=== PATIENT | male | born 1975 | race American Indian/Alaskan Native ===

== ENCOUNTER 2020-07-16 11:50 | Emergency (ER) | payer BC, OTHER ==
[2020-07-16] MEDS ORDERED: Sodium Chloride 0.9% 10 ML Syringe FLUSH PRN (12:24)
--- NOTE | 2020-07-16 12:29 | EDM.PDOC ---
ED HPI GENERAL MEDICAL PROBLEM - General Stated Complaint: ER VISIT Time Seen by Provider: 07/16/20 11:52 Source of Information: Reports: Patient History Limitations: Reports: No Limitations - History of Present Illness INITIAL COMMENTS - FREE TEXT/NARRATIVE: Patient comes into the emergency department complaint of chest pain.Patient was over at the [facility] and was escorted over here immediately after he presented with chest pain and shortness of breath. Patient states that the chest pain started approximately 5 hours ago. Patient states that he was getting ready for work this morning and he started having sharp shooting squeezing sensation pains bilaterally off of both shoulders down both of his arms. He states that his chest became tight and he also became short of breath and diaphoretic. He states that it has been slowly improving throughout the morning however he states that it is still minimally present.Patient currently denies any shortness of breath, dizziness, lightheadedness, abdominal pain, nausea, or diaphoresis. Patient does have a significant history of cardiovascular disease. Patient has had an open heart surgery approximately 6 years ago as well as significant family coronary artery disease. Onset: Sudden Duration: Improving Location: Reports: Chest Severity: Moderate Improves with: Reports: Other Worsens with: Reports: Movement Associated Symptoms: Reports: Chest Pain, Diaphoresis, Nausea/Vomiting, Shortness of Breath - Related Data Allergies Allergy/AdvReac Type Severity Reaction Status Date / Time cefepime Allergy Liver Verified 08/01/19 15:35 Problems Home Meds: Home Meds Insulin Glarg,Human.Rec.Analog [LantUS Solostar] 32 units INJECT ASDIRECTED 10/21/15 [History] Insulin Aspart [NovoLOG] 12 units SQ ASDIRECTED 06/04/16 [History] Allopurinol [Zyloprim] 300 mg PO DAILY 10/13/16 [History] Cholecalciferol (Vitamin D3) [Vitamin D] 1,000 units PO DAILY 10/13/16 [History] Aspirin 81 mg PO DAILY 03/30/17 [History] Nitroglycerin 0.4 mg SL ASDIRECTED PRN 03/30/17 [History] Albuterol Sulfate [Proair Respiclick] 2 puff IH Q4HR PRN 05/14/17 [History] Ferrous Fumarate/Vitamin C [Vitron-C] 1 tab PO DAILY 05/14/17 [History] atorvaSTATin [Lipitor] 40 mg PO BEDTIME 05/14/17 [History] Isosorbide Mononitrate [Imdur] 15 mg PO BID 05/16/17 [History] Furosemide [Lasix] 80 mg PO DAILY 10/30/17 [History] Montelukast [Singulair] 10 mg PO BEDTIME 10/30/17 [History] Multivitamin [Multivitamins] 1 tab PO DAILY 10/30/17 [History] carvediloL [Carvedilol] 18.75 mg PO BID 10/30/17 [History] Losartan [Cozaar] 25 mg PO BID 12/17/17 [History] Calcium Carbonate/Vitamin D3 [[place] 500-Vit D3 200 Tb] 1 tab PO DAILY 01/18/18 [History] Ranolazine [Ranolazine ER] 500 mg PO BID 08/01/19 [History] Ticagrelor [Brilinta] 90 mg PO BID 08/01/19 [History] Torsemide 40 mg PO DAILY 08/01/19 [History] Valsartan 80 mg PO BID 08/01/19 [History] metFORMIN HCl [Metformin HCl ER] 500 mg PO BID 08/01/19 [History] metOLazone [Metolazone] 2.5 mg PO DAILY 08/01/19 [History] Past Medical History HEENT History: Reports: None, Impaired Vision Other HEENT History: wears glasses Cardiovascular History: Reports: Bypass, CAD, Cardiomyopathy, High Cholesterol, Hypertension, SOB on Exertion, Other (See Below) Other Cardiovascular History: hypertrophic cardiomyopathy Respiratory History: Reports: Asthma, SOB Other Respiratory History: c-pap with o2. Gastrointestinal History: Reports: GERD, GI Bleed Genitourinary History: Reports: Chronic Renal Insuffiency, Renal Calculus, Other (See Below) (Chronic microscopic hematuria) Other Genitourinary History: "stage 3 kidney disease" Musculoskeletal History: Reports: Amputation, Arthritis, Gout, Osteoarthritis Other Musculoskeletal History: collasped arch in Rt. foot. Wears a boot. Neurological History: Reports: Neuropathy, Peripheral Psychiatric History: Reports: None Endocrine/Metabolic History: Reports: Diabetes, Type II Hematologic History: Reports: None Immunologic History: Reports: None Oncologic (Cancer) History: Reports: None Dermatologic History: Reports: None - Infectious Disease History Infectious Disease History: Reports: Chicken Pox, MRSA - Past Surgical History Head Surgeries/Procedures: Reports: None Cardiovascular Surgical History: Reports: Coronary Artery Bypass, Other (See Below) Other Cardiovascular Surgeries/Procedures: CABG mar 2017 GI Surgical History: Reports: Cholecystectomy, EGD, Other (See Below) Other GI Surgeries/Procedures: cyst on liver Musculoskeletal Surgical History: Reports: Amputation Social & Family History - Family History Family Medical History: No Pertinent Family History - Caffeine Use Caffeine Use: Reports: None - Living Situation & Occupation Living situation: Reports: with Family ED ROS GENERAL - Review of Systems Review Of Systems: Comprehensive ROS is negative, except as noted in HPI. Constitutional: Reports: No Symptoms HEENT: Reports: No Symptoms Respiratory: Reports: No Symptoms Cardiovascular: Reports: Chest Pain, Dyspnea on Exertion Endocrine: Reports: No Symptoms GI/Abdominal: Reports: No Symptoms : Reports: No Symptoms Musculoskeletal: Reports: No Symptoms Skin: Reports: No Symptoms Neurological: Reports: No Symptoms Psychiatric: Reports: No Symptoms Hematologic/Lymphatic: Reports: No Symptoms Immunologic: Reports: No Symptoms ED EXAM, GENERAL - Physical Exam Exam: See Below Exam Limited By: No Limitations General Appearance: Alert, WD/WN, No Apparent Distress Eye Exam: Bilateral Eye: EOMI, PERRL Head: Atraumatic, Normocephalic Neck: Normal Inspection, Supple, Non-Tender, Full Range of Motion Respiratory/Chest: No Respiratory Distress, Lungs Clear, Normal Breath Sounds, No Accessory Muscle Use, Chest Non-Tender Cardiovascular: Normal Peripheral Pulses, Regular Rate, Rhythm, No Edema, No JVD, No Murmur, No Rub GI/Abdominal: Normal Bowel Sounds, Soft, Non-Tender, No Abnormal Bruit Back Exam: Normal Inspection, Full Range of Motion Extremities: Normal Inspection, Normal Range of Motion, Non-Tender. No: Other (Prosthetic on right lower extremity) Neurological: Alert, Oriented, CN II-XII Intact, Normal Cognition Skin Exam: Warm, Dry, Intact #1 Interpretation Rhythm: NSR [place]: Normal QRS: Normal ST-T: Normal QT: Normal UT/PQ Interval: prolonged Comparison: NA - No Prior EKG Course - Orders/Labs/Meds Orders: Active Orders 24 hr Category Date Time Status EKG Documentation Completion [RC] STAT Care 07/16/20 12:25 Ordered CBC WITH AUTO DIFF [HEME] Stat Lab 07/16/20 12:24 Ordered COMPREHENSIVE METABOLIC PN,CMP [CHEM] Stat Lab 07/16/20 12:24 Ordered CREATINE KINASE,CK [CHEM] Stat Lab 07/16/20 12:24 Ordered PRO B-TYPE NATRIUR PEPT,BNPPRO [CHEM] Stat Lab 07/16/20 12:25 Ordered TROPONIN I HIGH SENSITIVITY [CHEM] Stat Lab 07/16/20 12:25 Ordered Sodium Chloride 0.9% [Saline Flush] Med 07/16/20 12:24 Ordered 10 ml FLUSH ASDIRECTED PRN Peripheral IV Insertion Adult [OM.PC] Stat Oth 07/16/20 12:24 Ordered Medication Orders Sodium Chloride (Sodium Chloride 0.9% 10 Ml Syringe) 10 ml FLUSH ASDIRECTED PRN PRN Reason: Keep Vein Open Meds: Medications Generic Name Dose Route Start Last Admin Trade Name Freq PRN Reason Stop Dose Admin Sodium Chloride 10 ml 07/16/20 12:24 Sodium Chloride 0.9% 10 Ml Syringe FLUSH ASDIRECTED PRN Keep Vein Open - Re-Assessments/Exams Free Text/Narrative Re-Assessment/Exam: 07/16/20 13:01 pt resting well without any pain. Would like to be discharged. VSS Departure - Departure Time of Disposition: 14:02 Disposition: Home, Self-Care 01 Condition: Good Clinical Impression: Nonspecific chest pain, Costochondral pain - Discharge Information *PRESCRIPTION DRUG MONITORING PROGRAM REVIEWED*: Not Applicable *COPY OF PRESCRIPTION DRUG MONITORING REPORT IN PATIENT KATHYA: Not Applicable Instructions: Nonspecific Chest Pain, Adult, [id number] Additional Instructions: 1. rest 2. increase your water intake 3. Continue all at home medications 4. Activity and diet as tolerated 5. Can take over the counter Tylenol for any pain or discomfort 6. Follow up with PCP if symptoms continue, return, or progress 7. Call with any questions or concerns 8. It was advised to be admitted and observed for the cardiac labs over the next 12 hours however, you declined and stated verbally your understanding of the risk. Please return or call 911 if symptoms return or progress immediately. - My Orders Last 24 Hours: My Active Orders 07/16/20 12:24 CBC WITH AUTO DIFF [HEME] Stat COMPREHENSIVE METABOLIC PN,CMP [CHEM] Stat CREATINE KINASE,CK [CHEM] Stat Sodium Chloride 0.9% [Saline Flush] 10 ml FLUSH ASDIRECTED PRN Peripheral IV Insertion Adult [OM.PC] Stat 07/16/20 12:25 EKG Documentation Completion [RC] STAT PRO B-TYPE NATRIUR PEPT,BNPPRO [CHEM] Stat TROPONIN I HIGH SENSITIVITY [CHEM] Stat - Assessment/Plan Last 24 Hours: My Active Orders 07/16/20 12:24 CBC WITH AUTO DIFF [HEME] Stat COMPREHENSIVE METABOLIC PN,CMP [CHEM] Stat CREATINE KINASE,CK [CHEM] Stat Sodium Chloride 0.9% [Saline Flush] 10 ml FLUSH ASDIRECTED PRN Peripheral IV Insertion Adult [OM.PC] Stat 07/16/20 12:25 EKG Documentation Completion [RC] STAT PRO B-TYPE NATRIUR PEPT,BNPPRO [CHEM] Stat TROPONIN I HIGH SENSITIVITY [CHEM] Stat Assessment:: 1. chest pain Plan: 1. Labs completed in the ER. Results reviewed with the patient 2. IV initiated in the emergency department 3. IV fluids provided 4. Chest xray completed in ER. Results reviewed with the patient 5. ASA 324mg chewable was given to the patient 6. EKG was completed in ER. Results reviewed with the patient 7. Patient and nursing staff was updated regarding the plan of care 8. Education provided the patient regarding activity, diet, rest, [id number] medication modalities, and follow-up care was provided 9. Patient and family are agreeable to the above plan of care 10. All questions and concerns were addressed with the patient and family prior to discharge 11. Discussed with the patient and at great length regarding admitting as observation and repeating cardiac enzymes and monitoring CK level. Patient is adamant that he would like to go home at the present time. Patient states that they will take on the full responsibility and the risks of sudden cardiac , stroke, myocardial infarction, or irreversible heart damage. Patient and will contact 911 or return to the emergency department immediately if any of the symptoms do return.
[2020-07-16] MEDS ORDERED: Aspirin 81 MG Tab.Chew PO ONE (12:31)
[2020-07-16 12:55] LABS: ANION GAP 13.1 mmol/L (5-15); CHLORIDE,CL 105 mmol/L (98-107); SODIUM,NA 140 mmol/L (136-145)
--- NOTE | 2020-07-16 13:18 | CR ---
[id number] RAD/RAD Chest PA or AP 1V EXAM: RAD Chest PA or AP 1V INDICATION: CHEST PAIN. COMPARISON: None. DISCUSSION/IMPRESSION: Median sternotomy wires. Surgical clips project over the mediastinum. Heart is normal in size. Lungs are clear. No pleural effusion or pneumothorax. Aamir Mercedes MD 07/16/20 [id number] Thank you for allowing us to participate in the care of your patient.
[2020-07-16 20:04] VITALS: BP 151/81; PULSE 67
== END 2020-07-16 14:07 | disposition home or self-care (01) ==
LOC: VM.ED 11:50
DX: M94.0 Chondrocostal junction syndrome [Tietze] (principal); I25.10 Atherosclerotic heart disease of native coronary artery without angina pectoris; E78.00 Pure hypercholesterolemia, unspecified; I12.9 Hypertensive chronic kidney disease with stage 1 through stage 4 chronic kidney disease, or unspecified chronic kidney disease; E11.40 Type 2 diabetes mellitus with diabetic neuropathy, unspecified; E11.22 Type 2 diabetes mellitus with diabetic chronic kidney disease; N18.30 Chronic kidney disease, stage 3 unspecified; Z95.1 Presence of aortocoronary bypass graft; Z79.82 Long term (current) use of aspirin; Z79.899 Other long term (current) drug therapy; Z88.1 Allergy status to other antibiotic agents
CPT/HCPCS: 71045; 80053; 82550; 83880; 84484; 85025; 93005; 93010; 99284; 99285-25; A9270-GY

== ENCOUNTER 2020-07-19 15:41 | Emergency (ER) | payer OTHER ==
--- NOTE | 2020-07-19 15:53 | EDM.PDOC ---
ED HPI GENERAL MEDICAL PROBLEM - General Stated Complaint: CHEST PAIN Time Seen by Provider: 07/19/20 15:52 Source of Information: Reports: Patient, Family, RN, RN Notes Reviewed History Limitations: Reports: No Limitations - History of Present Illness INITIAL COMMENTS - FREE TEXT/NARRATIVE: Patient is a 44-year-old male who presents to ER with his complaining of chest pain/pressure. Patient states he was also here Sunday, states symptoms that day felt as though he had a head rash with numbness in the arms. Today constant pressure that went through the back began at [address] ates no pain but tightness. Upon the beginning of the pain he rated at a 7/10, upon arrival to the ER rates the pain a 5-6/10. States he did have some shortness of breath and slight dizziness with this pain, since resolved. Patient admits to having a recent cough. states he has been using his rescue inhaler more often frequently. Also admits to runny nose. Denies headache or sore throat. Patient has a significant cardiac history including open heart surgery in 2018, CAD, non-STEMI, hypertension. Patient also has a history of diabetes, insulin-dependent, GERD, and chronic kidney disease. Also has a strong family history of cardiac problems. Mother had severe CHF. Patient states he had Covid in the end of November and developed Covid pneumonia right afterwards. Patient states he has not eaten much today, states he had some M&Ms this morning and coffee this afternoon. Onset: Today, Sudden Middle Chest Pain Score (Numeric/FACES): 1 - Related Data Allergies Allergy/AdvReac Type Severity Reaction Status Date / Time cefepime Allergy Liver Verified 07/16/20 19:55 Problems Home Meds: Home Meds Cholecalciferol (Vitamin D3) [Vitamin D] 1,000 units PO DAILY 10/13/16 [History] Aspirin 81 mg PO DAILY 03/30/17 [History] Nitroglycerin 0.4 mg SL ASDIRECTED PRN 03/30/17 [History] Albuterol Sulfate [Proair Respiclick] 2 puff IH Q4HR PRN 05/14/17 [History] atorvaSTATin [Lipitor] 40 mg PO BEDTIME 05/14/17 [History] Isosorbide Mononitrate [Imdur] 30 mg PO DAILY 05/16/17 [History] Montelukast [Singulair] 10 mg PO BEDTIME 10/30/17 [History] Multivitamin [Multivitamins] 1 tab PO DAILY 10/30/17 [History] carvediloL [Carvedilol] 25 mg PO BID 10/30/17 [History] Ranolazine [Ranolazine ER] 500 mg PO BID 08/01/19 [History] Torsemide 20 mg PO DAILY 08/01/19 [History] Valsartan 80 mg PO DAILY 08/01/19 [History] metFORMIN HCl [Metformin HCl ER] 500 mg PO BID 08/01/19 [History] Clopidogrel [Plavix] 75 mg PO DAILY 07/19/20 [History] Insulin Aspart [NovoLOG] 75 units SQ DAILY 07/19/20 [History] Omeprazole 20 mg PO DAILY 07/19/20 [History] Past Medical History HEENT History: Reports: None, Impaired Vision Other HEENT History: wears glasses Cardiovascular History: Reports: Bypass, CAD, Cardiomyopathy, High Cholesterol, Hypertension, SOB on Exertion, Other (See Below) Other Cardiovascular History: hypertrophic cardiomyopathy Respiratory History: Reports: Asthma, SOB Other Respiratory History: c-pap with o2. Gastrointestinal History: Reports: GERD, GI Bleed Genitourinary History: Reports: Chronic Renal Insuffiency, Renal Calculus, Other (See Below) Other Genitourinary History: "stage 3 kidney disease" Musculoskeletal History: Reports: Amputation, Arthritis, Gout, Osteoarthritis Other Musculoskeletal History: collasped arch in Rt. foot. Wears a boot. Neurological History: Reports: Neuropathy, Peripheral Psychiatric History: Reports: None Endocrine/Metabolic History: Reports: Diabetes, Type II Hematologic History: Reports: None Immunologic History: Reports: None Oncologic (Cancer) History: Reports: None Dermatologic History: Reports: None - Infectious Disease History Infectious Disease History: Reports: Chicken Pox, MRSA - Past Surgical History Head Surgeries/Procedures: Reports: None Cardiovascular Surgical History: Reports: Coronary Artery Bypass, Other (See Below) Other Cardiovascular Surgeries/Procedures: CABG mar 2017 GI Surgical History: Reports: Cholecystectomy, EGD, Other (See Below) Other GI Surgeries/Procedures: cyst on liver Musculoskeletal Surgical History: Reports: Amputation Social & Family History - Family History Family Medical History: No Pertinent Family History - Caffeine Use Caffeine Use: Reports: None - Living Situation & Occupation Living situation: Reports: with Family ED ROS GENERAL - Review of Systems Review Of Systems: Comprehensive ROS is negative, except as noted in HPI. ED EXAM, GENERAL - Physical Exam Exam: See Below Exam Limited By: No Limitations General Appearance: Alert, WD/WN, Mild Distress Eye Exam: Bilateral Eye: EOMI, Normal Inspection Ears: Normal External Exam, Hearing Grossly Normal Nose: Normal Inspection Throat/Mouth: Normal Inspection, Normal Voice, No Airway Compromise Head: Atraumatic, Normocephalic Neck: Normal Inspection, Supple, Non-Tender, Full Range of Motion Respiratory/Chest: No Respiratory Distress, Lungs Clear, Normal Breath Sounds, No Accessory Muscle Use, Chest Non-Tender Cardiovascular: Normal Peripheral Pulses, Regular Rate, Rhythm, No Edema, No Gallop, No JVD, No Murmur, No Rub Peripheral Pulses: 2+: Radial (L), Radial (R) GI/Abdominal: Normal Bowel Sounds, Soft, Non-Tender (Male) Exam: Deferred Rectal (Males) Exam: Deferred Back Exam: Normal Inspection, Full Range of Motion, NT Extremities: Normal Inspection, Normal Range of Motion, Non-Tender, Normal Capillary Refill, No Pedal Edema Neurological: Alert, Oriented, CN II-XII Intact, Normal Cognition, Normal Gait, Normal Reflexes, No Motor/Sensory Deficits Psychiatric: Normal Affect, Normal Mood Skin Exam: Warm, Dry, Intact, Normal Color, No Rash Lymphatic: No Adenopathy #1 Interpretation EKG Date: 07/19/20 Time: 15:47 Rhythm: NSR Rate (Beats/Min): 63 [place]: Normal P-Wave: Present QRS: Normal ST-T: Normal QT: Prolonged Comparison: No Change #2 Interpretation EKG Date: 07/19/20 Time: 20:38 Rhythm: NSR Rate (Beats/Min): 60 [place]: Normal P-Wave: Present QRS: Normal ST-T: Normal QT: Prolonged Comparison: No Change Course - Vital Signs Last Recorded V/S: Last Vital Signs Temp 97.3 F 07/19/20 15:50 Pulse 64 07/19/20 18:30 Resp 16 07/19/20 18:30 BP 144/82 H 07/19/20 18:30 Pulse Ox 98 07/19/20 18:30 - Orders/Labs/Meds Orders: Active Orders 24 hr Category Date Time Status EKG Documentation Completion [RC] STAT Care 07/19/20 15:55 Active EKG Documentation Completion [RC] STAT Care 07/19/20 20:00 Active Nitroglycerin [Nitrostat] Med 07/19/20 16:17 Active 0.4 mg SL Q5M PRN Medication Orders Nitroglycerin (Nitroglycerin 0.4 Mg Tab.Sl) 0.4 mg SL Q5M PRN PRN Reason: Chest Pain Stop: 07/20/20 16:18 Last Admin: 07/19/20 16:40 Dose: 0.4 mg Documented by: Admin: 07/19/20 16:20 Dose: 0.4 mg Documented by: RAKESH Labs: Laboratory Tests 07/19/20 07/19/20 07/19/20 Range/Units 16:00 16:00 16:00 WBC 7.1 (4.0-10.0) x10^3/uL RBC 4.86 (4.5-6.0) x10^6/uL Hgb 14.6 (14.0-18.0) g/dL Hct 42.3 (40.0-52.0) % MCV 87.0 (78.0-93.0) fL MCH 30.0 (26.0-32.0) pg MCHC 34.5 (32.0-36.0) g/dL RDW Coeff of [place] 14.2 (10.0-15.0) % Plt Count 221 (130-400) x10^3/uL Add Manual Diff Yes Neutrophils % (Manual) 61 (50-80) % Band Neutrophils % 2 (0-6) % Lymphocytes % (Manual) 23 L (25-50) % Monocytes % (Manual) 9 (2-11) % Eosinophils % (Manual) 4 (0-4) % Metamyelocytes % 1 H (0) % Platelet Estimate Adequate PT 10.1 (9.9-12.5) SEC INR 0.9 L (2.0-3.5) Sodium 138 (136-145) mmol/L Potassium 4.5 (3.5-5.1) mmol/L Chloride 105 (98-107) mmol/L Carbon Dioxide 28 (21-32) mmol/L Anion Gap 9.5 (5-15) mmol/L BUN 45 H (7-18) mg/dL Creatinine 2.5 H (0.70-1.30) mg/dL Est Cr Clr Drug Dosing TNP Estimated GFR (MDRD) 28 Glucose 132 H (70-99) mg/dL Calcium 8.2 L (8.5-10.1) mg/dL Corrected Calcium 8.9 (8.5-10.1) mg/dL Magnesium (1.8-2.4) mg/dL Total Bilirubin 0.7 (0.2-1.0) mg/dL AST 21 (15-37) U/L ALT 35 (16-63) U/L Alkaline Phosphatase 90 (46-116) U/L Troponin I High Sens 10 (<=76) ng/L C-Reactive Protein < 0.2 (<=0.9) mg/dL NT-Pro-B Natriuret Pep 235 H (<=125) pg/mL Total Protein 7.2 (6.4-8.2) g/dL Albumin 3.1 L (3.4-5.0) g/dL Globulin 4.1 Albumin/Globulin Ratio 0.76 07/19/20 07/19/20 Range/Units 16:00 20:05 WBC (4.0-10.0) x10^3/uL RBC (4.5-6.0) x10^6/uL Hgb (14.0-18.0) g/dL Hct (40.0-52.0) % MCV (78.0-93.0) fL MCH (26.0-32.0) pg MCHC (32.0-36.0) g/dL RDW Coeff of [place] (10.0-15.0) % Plt Count (130-400) x10^3/uL Add Manual Diff Neutrophils % (Manual) (50-80) % Band Neutrophils % (0-6) % Lymphocytes % (Manual) (25-50) % Monocytes % (Manual) (2-11) % Eosinophils % (Manual) (0-4) % Metamyelocytes % (0) % Platelet Estimate PT (9.9-12.5) SEC INR (2.0-3.5) Sodium (136-145) mmol/L Potassium (3.5-5.1) mmol/L Chloride (98-107) mmol/L Carbon Dioxide (21-32) mmol/L Anion Gap (5-15) mmol/L BUN (7-18) mg/dL Creatinine (0.70-1.30) mg/dL Est Cr Clr Drug Dosing Estimated GFR (MDRD) Glucose (70-99) mg/dL Calcium (8.5-10.1) mg/dL Corrected Calcium (8.5-10.1) mg/dL Magnesium 1.9 (1.8-2.4) mg/dL Total Bilirubin (0.2-1.0) mg/dL AST (15-37) U/L ALT (16-63) U/L Alkaline Phosphatase (46-116) U/L Troponin I High Sens 10 (<=76) ng/L C-Reactive Protein (<=0.9) mg/dL NT-Pro-B Natriuret Pep (<=125) pg/mL Total Protein (6.4-8.2) g/dL Albumin (3.4-5.0) g/dL Globulin Albumin/Globulin Ratio Meds: Medications Generic Name Dose Route Start Last Admin Trade Name Freq PRN Reason Stop Dose Admin Nitroglycerin 0.4 mg 07/19/20 16:17 07/19/20 16:40 Nitroglycerin 0.4 Mg Tab.Sl SL 07/20/20 16:18 0.4 mg Q5M PRN Administration Chest Pain Discontinued Medications Generic Name Dose Route Start Last Admin Trade Name Freq PRN Reason Stop Dose Admin Al Hydroxide/Mg Hydroxide 30 ml 07/19/20 17:27 07/19/20 17:41 Gi Cocktail Oral Solution 30 Ml PO 07/19/20 17:28 30 ml ONETIME ONE Administration Aspirin 243 mg 07/19/20 16:17 07/19/20 16:21 Aspirin 81 Mg Tab.Chew PO 07/19/20 16:18 243 mg ONETIME ONE Administration - Radiology Interpretation Free Text/Narrative:: CHest xray: No acute findings See rad report - Re-Assessments/Exams Free Text/Narrative Re-Assessment/Exam: 07/19/20 19:24 Discussed labs and diagnostics with patient. Patient agrees to stay and have troponin and EKG repeated after 4 hours. Patient does admit to having GERD, states he takes omeprazole on a daily basis. Patient states he has not eaten anything today except M&Ms this morning and did drink some coffee. Discussed the possibility of acid reflux causing his pain today. Patient has been given 2 nitroglycerin and it has improved the pain but not taking it away completely. Did give the patient a GI cocktail, and he did get a cardiac/diabetic supper tray. After this patient states pain is completely resolved Departure - Departure Time of Disposition: 20:45 Disposition: Home, Self-Care 01 Reason for Transfer *Q: Other Condition: Good Clinical Impression: GERD (gastroesophageal reflux disease) Qualifiers: Esophagitis presence: esophagitis presence not specified Qualified Code(s): K21.9 - Gastro-esophageal reflux disease without esophagitis Chest pain Qualifiers: Chest pain type: unspecified Qualified Code(s): R07.9 - Chest pain, unspecified Instructions: Food Choices for Gastroesophageal Reflux Disease, Adult, [id number], Nonspecific Chest Pain, Adult, [id number], Gastroesophageal Reflux Disease, Adult, [id number], Angina, [id number] Referrals: Aylin Coffman MD [Primary Care Provider] - Forms: ED Department Discharge Additional Instructions: Return to the ER with any worsening of symptoms Follow-up with your primary care provider Carry nitro with you Eat a balanced diet, 3 meals a day Avoid carbonated beverages, spicy foods, mint, chocolate to avoid gastric reflux Follow-up with cardiology Sepsis Event Note (ED) - Focused Exam Vital Signs: Vital Signs Temp Pulse Resp BP BP Pulse Ox 07/19/20 18:30 64 16 144/82 H 98 07/19/20 17:35 62 16 135/76 98 07/19/20 17:20 60 16 131/70 95 07/19/20 16:40 60 16 126/67 126/54 L 98 07/19/20 16:20 151/78 H 07/19/20 16:05 61 16 152/79 H 96 07/19/20 16:00 60 16 128/72 97 07/19/20 15:50 97.3 F 63 20 180/81 H 97 - My Orders Last 24 Hours: My Active Orders 07/19/20 15:55 EKG Documentation Completion [RC] STAT 07/19/20 16:17 Nitroglycerin [Nitrostat] 0.4 mg SL Q5M PRN 07/19/20 20:00 EKG Documentation Completion [RC] STAT - Assessment/Plan Last 24 Hours: My Active Orders 07/19/20 15:55 EKG Documentation Completion [RC] STAT 07/19/20 16:17 Nitroglycerin [Nitrostat] 0.4 mg SL Q5M PRN 07/19/20 20:00 EKG Documentation Completion [RC] STAT
[2020-07-19] MEDS ORDERED: Aspirin 81 MG Tab.Chew PO ONE (16:17)
[2020-07-19] MEDS: Nitroglycerin 0.4 MG Tab.SL SL PRN ×2 (16:20→16:40)
[2020-07-19 16:34] LABS: CHLORIDE,CL 105 mmol/L (98-107); SODIUM,NA 138 mmol/L (136-145)
[2020-07-19 16:43] LABS: ANION GAP 9.5 mmol/L (5-15)
--- NOTE | 2020-07-19 17:18 | CR ---
[id number] RAD/RAD Chest PA or AP 1V EXAM: SINGLE VIEW CHEST. INDICATION: CHEST PAIN COMPARISON: CORRELATION IS MADE WITH JULY 16, 2020 FINDINGS: The lungs are clear The cardiomediastinal contour is stable Median sternotomy sutures are seen IMPRESSION: NO PNEUMONIA OR EDEMA Malcom Valadez MD 07/19/20 [id number] Thank you for allowing us to participate in the care of your patient.
[2020-07-19] MEDS ORDERED: GI Cocktail Oral Solution 30 ML PO ONE (17:27)
[2020-07-19 20:10] VITALS: PULSE 64
[2020-07-19 23:55] VITALS: BP 148/81
== END 2020-07-19 20:57 | disposition home or self-care (01) ==
LOC: VM.ED 15:41
DX: K21.9 Gastro-esophageal reflux disease without esophagitis (principal); I25.10 Atherosclerotic heart disease of native coronary artery without angina pectoris; I12.9 Hypertensive chronic kidney disease with stage 1 through stage 4 chronic kidney disease, or unspecified chronic kidney disease; E11.22 Type 2 diabetes mellitus with diabetic chronic kidney disease; N18.9 Chronic kidney disease, unspecified; E78.00 Pure hypercholesterolemia, unspecified; Z95.1 Presence of aortocoronary bypass graft; Z79.82 Long term (current) use of aspirin; Z79.02 Long term (current) use of antithrombotics/antiplatelets; Z79.899 Other long term (current) drug therapy; Z88.1 Allergy status to other antibiotic agents
CPT/HCPCS: 36415; 71045; 80053; 83735; 83880; 84484; 85025; 85610; 86140; 93005; 93010; 99284; 99285-25; A9270-GY